=== PATIENT | female | born 1955 | race Caucasian/White ===

== ENCOUNTER → 2018-07-15 | Outpatient (CLI) | payer OTHER | END | disposition home or self-care (01) | LOC: PCVCCLINIC 15:11 | PROVIDERS: ATTEND Internal Medicine | DX: I10 Essential (primary) hypertension (principal); R06.02 Shortness of breath; E78.5 Hyperlipidemia, unspecified; E11.9 Type 2 diabetes mellitus without complications; I63.50 Cerebral infarction due to unspecified occlusion or stenosis of unspecified cerebral artery; G47.33 Obstructive sleep apnea (adult) (pediatric); J44.9 Chronic obstructive pulmonary disease, unspecified; K21.9 Gastro-esophageal reflux disease without esophagitis; M81.0 Age-related osteoporosis without current pathological fracture; Z79.82 Long term (current) use of aspirin | CPT/HCPCS: 93005; G0463 ==

== ENCOUNTER → 2018-07-22 | Outpatient (CLI) | payer OTHER ==
[~2018-07-22] MED LIST: REGADENOSON 0.4 MG/5 ML DISP.SYRIN. IV ONE
--- NOTE | 2018-07-22 16:33 | PCVCIMAG ---
APPROVED REPORT Study performed: 07/22/2018 15:36:18 EXAM: Comprehensive 2D, Doppler, and color-flow Echocardiogram Patient Location: Echo lab Status: routine BSA: 2.33 HR: 82 bpmBP: 160/80 mmHg Rhythm: NSR Other Information Study Quality: Good Risk Factors: Cardiac Risk Factors: HTN, Hyperlipidemia, DM Indications CVA/TIA ARMAND 2D Dimensions IVSd: 16.98 (7-11mm)LVOT Diam: 21.56 (18-24mm) LVDd: 39.00 mm PWd: 13.54 (7-11mm)Ascending Ao: 28.73 (22-36mm) LVDs: 28.14 (25-40mm) Left Atrium: 37.60 (27-40mm) Aortic Root: 24.22 mm LV Single Plane 4CH: 57.40 % LV Single Plane 2CH: 65.96 % Biplane EF: 61.6 % Volumes Left Atrial Volume (Systole) Single Plane 4CH: 32.92 mLSingle Plane 2CH: 32.39 mL LA ESV Index: 14.00 mL/m2 Aortic Valve AoV Peak Ahmet.: 1.54 m/s AO Peak Gr.: 9.47 mmHg Mitral Valve E/A Ratio: 0.7 MV Decel. Time: 226.75 ms MV E Max Ahmet.: 0.79 m/s MV A Ahmet.: 1.06 m/s IVRT: 128.03 ms TDI E/Lateral E': 9.88E/Medial E': 19.75 Medial E' Ahmet.: 0.04 m/s Lateral E' Ahmet.: 0.08 m/s Pulmonary Valve PV Peak Gr.: 4.59 mmHg Pulmonary Vein P Vein S: 0.53 m/sP Vein A: 0.42 m/s P Vein D: 0.33 m/sP Vein A Dur.: 83.0 msec P Vein S/D Ratio: 1.61 Tricuspid Valve TR Peak Ahmet.: 2.30 m/s TR Peak Gr.: 21.13 mmHg Left Ventricle The left ventricle is normal size. There is normal LV segmental wall motion. Mild concentric left ventricular hypertrophy. Left ventricular systolic function is normal. The left ventricular ejection fraction is within the normal range. LVEF is 55%. Mild diastolic dysfunction is present (impaired relaxation pattern). Right Ventricle The right ventricle is normal size. The right ventricular systolic function is normal. Atria The left atrium size is normal. The right atrium size is normal. Aortic Valve The aortic valve is mildly calcified No aortic regurgitation is present. There is no aortic valvular stenosis. Mitral Valve The mitral valve is normal in structure. There is no mitral valve regurgitation noted. No evidence of mitral valve stenosis. Tricuspid Valve The tricuspid valve is normal in structure. Trace tricuspid regurgitation. Pulmonary artery pressure is 30 mmHg. Pulmonic Valve The pulmonary valve is normal in structure. There is no pulmonic valvular regurgitation. Great Vessels The aortic root is normal in size. IVC is normal in size and collapses >50% with inspiration. Pericardium There is no pericardial effusion. <Conclusion> Left ventricular systolic function is normal. There is normal LV segmental wall motion. EF 55% Mild concentric left ventricular hypertrophy. Mild diastolic dysfunction is present (impaired relaxation pattern). The aortic valve is mildly calcified. No aortic regurgitation or stenosis The mitral valve is normal in structure. No mitral valve regurgitation Trace tricuspid regurgitation. Pulmonary artery pressure is 30 mmHg. There is no pericardial effusion.
== END | disposition home or self-care (01) ==
LOC: PCVCIMAG 13:42
PROVIDERS: ATTEND Internal Medicine
DX: I63.9 Cerebral infarction, unspecified (principal); G45.9 Transient cerebral ischemic attack, unspecified; G47.33 Obstructive sleep apnea (adult) (pediatric)
CPT/HCPCS: 93306; J2785